=== PATIENT | female | born 1945 | race Caucasian/White ===

== ENCOUNTER → 2024-08-03 | Outpatient (CLI) | payer OTHER | END | disposition home or self-care (01) | LOC: RESCLI 14:14 | PROVIDERS: ATTEND Student in an Organized Health Care Education/Training Program | DX: I48.91 Unspecified atrial fibrillation (principal); E78.5 Hyperlipidemia, unspecified; I73.9 Peripheral vascular disease, unspecified; E55.9 Vitamin D deficiency, unspecified; I10 Essential (primary) hypertension; T78.40XA Allergy, unspecified, initial encounter; Z98.890 Other specified postprocedural states; Z88.8 Allergy status to other drugs, medicaments and biological substances; Z79.899 Other long term (current) drug therapy; X58.XXXA Exposure to other specified factors, initial encounter ==